=== PATIENT | female | born 1940 | race Caucasian/White ===

== ENCOUNTER → 2016-10-05 | Outpatient (CLI) | payer MEDICARE ==
--- NOTE | 2016-10-05 17:33 | PCVCIMAG ---
APPROVED REPORT Study performed: 10/05/2016 14:13:01 EXAM: Comprehensive 2D, Doppler, and color-flow Echocardiogram Patient Location: Echo lab Status: routine Other Information Study Quality: Adequate Indications COPD Dyspnea CAD assess PAP 2D Dimensions LVEF(%): 54.91 (>50%) IVSd: 7.72 (7-11mm) LVDd: 40.92 mm PWd: 9.80 (7-11mm) LVDs: 29.40 (25-40mm) Left Atrium: 33.20 (27-40mm) Aortic Root: 25.34 mm LV Single Plane 4CH: 62.96 % LV Single Plane 2CH: 64.01 %Sue's LVEF: 63.49 % Biplane EF: 63.9 % Volumes Left Atrial Volume (Systole) Single Plane 4CH: 48.31 mLSingle Plane 2CH: 57.27 mL LA ESV Index: 38.00 mL/m2 Aortic Valve AoV Peak Ryley.: 2.29 m/s AO Peak Gr.: 21.10 mmHgLVOT Max P.68 mmHg LVOT Max V: 1.29 m/s Mitral Valve E/A Ratio: 0.7 MV Decel. Time: 211.70 ms MV E Max Ryley.: 1.03 m/s MV A Ryley.: 1.51 m/s IVRT: 89.97 ms Pulmonary Valve PV Peak Ryley.: 1.13 m/sPV Peak Gr.: 5.09 mmHg Tricuspid Valve TR Peak Ryley.: 3.12 m/s TR Peak Gr.: 38.98 mmHg Left Ventricle The left ventricle is normal size. There is normal LV segmental wall motion. There is normal left ventricular wall thickness. Left ventricular systolic function is normal. The left ventricular ejection fraction is within the normal range. LVEF is 55-60%. Grade I - abnormal relaxation pattern. Right Ventricle The right ventricle is normal size. The right ventricular systolic function is normal. Atria Left atrium is mildly dilated. The right atrium size is normal. Aortic Valve The aortic valve is normal in structure. No aortic regurgitation is present. There is no aortic valvular stenosis. Mitral Valve The mitral valve is normal in structure. There is mild mitral valve regurgitation noted. No evidence of mitral valve stenosis. Tricuspid Valve The tricuspid valve is normal in structure. Mild tricuspid regurgitation with PAP of 47 mmHg. Pulmonic Valve The pulmonary valve is normal in structure. There is no pulmonic valvular regurgitation. Great Vessels The aortic root is normal in size. IVC is normal in size and collapses with >50% inspiration Pericardium There is no pericardial effusion. <Conclusion> There is normal left ventricular wall thickness. LVEF is 55-60%. Grade I - abnormal relaxation pattern. The left ventricle is normal size. The right atrium size is normal. The right ventricular systolic function is normal. Grade I - abnormal relaxation pattern. The aortic valve is normal in structure. There is mild mitral valve regurgitation noted. There is no pericardial effusion. Mild tricuspid regurgitation with PAP of 47 mmHg.
== END | disposition home or self-care (01) ==
LOC: PCVCIMAG 13:39
PROVIDERS: ATTEND Internal Medicine Cardiovascular Disease
DX: I34.0 Nonrheumatic mitral (valve) insufficiency (principal); I07.1 Rheumatic tricuspid insufficiency; I49.1 Atrial premature depolarization; I25.10 Atherosclerotic heart disease of native coronary artery without angina pectoris; J44.9 Chronic obstructive pulmonary disease, unspecified; I10 Essential (primary) hypertension; I77.89 Other specified disorders of arteries and arterioles; E78.00 Pure hypercholesterolemia, unspecified; C34.91 Malignant neoplasm of unspecified part of right bronchus or lung; Z85.048 Personal history of other malignant neoplasm of rectum, rectosigmoid junction, and anus; Z85.038 Personal history of other malignant neoplasm of large intestine; Z90.710 Acquired absence of both cervix and uterus; Z87.891 Personal history of nicotine dependence; Z79.82 Long term (current) use of aspirin
CPT/HCPCS: 80061; 93005; 93306; G0463

== ENCOUNTER → 2016-10-13 | Outpatient (CLI) | payer MEDICARE ==
[~2016-10-13] MED LIST: AMINOPHYLLINE 250 MG/10 ML VIAL. ONE; REGADENOSON 0.4 MG/5 ML DISP.SYRIN. IV ONE
--- NOTE | 2016-10-13 18:05 | PCVCIMAG ---
APPROVED REPORT Exam: Nuclear Stress Test Indication: CAD , Chest pain Patient Location: Out-Patient Stress Nurse: Zhanna Senior RN, Ria Restrepo RN HI Tech:Margot Castro [facility] Ht: 5 ft 0 in Wt: 104 lbs BSA: 1.41 m2 HR: 106 bpm BP: 117/55 mmHg BMI: 20.3 Rhythm: Sinus Tachycardia Medical History Medical History: HTN, Hyperlipidemia, COPD, PVD, Former smoker Medications: Albuterol, Caduet, ASA, Nexium, Nitro SL (none today) Continuous 02-2 lt. Allergies: No known drug allergies Cardiac Risk Factors: Age Previous Cardiac Procedures: PCI Pretest Chest Pain Characteristics: Chest pain Exercise History: Sedentary NM EXAM: Myocardial Perfusion REST/STRESS Imaging Protocol: Rest Tc-99m/Stress Tc-99m 1 day Resting Data Rest SPECT myocardial perfusion imaging was performed in supine position 45 minutes following the intravenous injection of 8.3 mCi of Tc-99m Sestamibi. Time of rest injection: 1245 Date: 10/13/2016 Pharmacologic Stress Pharmacologic stress test was performed by injecting Regadenoson 0.4 mg IV push followed by the intravenous injection of 25.1 mCi of Tc-99m Sestamibi. Time of stress injection: 1425 Date: 10/13/2016 Administration Route: IV Administration Site: Right AC Gated Stress SPECT was performed 45 minutes after stress injection. The images were gated to evaluate regional wall motion and calculate left ventricular ejection fraction. Study Quality Study: Good Study Data Post stress, the left ventricular ejection was 59%.. SSS: 0 SRS: 0 SDS: 0 TID = 1.26. Perfusion No evidence of stress induced ischemia or prior myocardial infarction. Wall Motion Normal left ventricular size and function with no regional wall motion abnormalities. No evidence of post stress ventricular dilatation. Nuclear Conclusion No evidence of stress induced ischemia or prior myocardial infarction. Normal left ventricular size and function with no regional wall motion abnormalities. Post stress, the left ventricular ejection was 59%.. No prior study available for comparison. Interpreted by: Musa Irvin MD Electronically Approved: 10/13/2016 17:54:57 Stress Test Details Stress Test: Pharmacologic stress testing performed using 0.4 mg of regadenoson per 5 mL given IV over 10 seconds. Reason for pharmacologic stress test: physical limitation. Reversal agent Aminophyline 100 mg, given intravenously for dyspnea, nausea, headache. HR Resting HR: 106 bpmMax Heart Rate (APMHR): 144 bpm Max HR Achieved: 116 bpmTarget HR (85% APMHR): 122 bpm % of APMHR: 80 Recovery HR: 116 bpm BP Resting BP: 117/55 mmHg Max BP: 92/46 mmHg Recovery BP: 119/69 mmHg ECG Resting ECG: Sinus Tachycardia Stress ECG: Sinus Tachycardia, nonspecific ST-T abnormalities ST Change: Nondiagnostic resting ST abnormalities Maximum ST Deviation: 2 mm Arrhythmia: None Recovery ECG: Sinus Tachycardia, nonspecific ST-T abnormalities Clinical Reason for Termination: Completed protocol Stress Symptoms: Abdominal discomfort, Dyspnea Exercise duration: min .55 sec Exercise capacity: 1.0 METs Symptoms resolved during recovery.
== END | disposition home or self-care (01) ==
LOC: PCVCIMAG 12:01
PROVIDERS: ATTEND Internal Medicine Cardiovascular Disease
DX: I25.10 Atherosclerotic heart disease of native coronary artery without angina pectoris (principal); I10 Essential (primary) hypertension; J44.9 Chronic obstructive pulmonary disease, unspecified; I73.9 Peripheral vascular disease, unspecified; E78.5 Hyperlipidemia, unspecified; E78.00 Pure hypercholesterolemia, unspecified; C34.91 Malignant neoplasm of unspecified part of right bronchus or lung; R00.0 Tachycardia, unspecified; Z87.891 Personal history of nicotine dependence; Z79.82 Long term (current) use of aspirin
CPT/HCPCS: 78452; 93017; A9500; J0280; J2785